=== PATIENT | male | born 1965 | race Caucasian/White ===

== ENCOUNTER 2019-02-28 17:02 | Emergency (ER) | payer BC ==
[~2019-02-28] VITALS: Ht 177.8 cm; Wt 84.1 kg
[2019-02-28] MEDS ORDERED: LORazepam 2 MG TABLET PO ONE (20:00)
[2019-02-28] MEDS ORDERED: HALOPERIDOL 5 MG TABLET PO ONE (20:00)
[2019-02-28 20:22] LABS: BASOPHILS % (AUTO) 1.5 % (0.0-2.0); EOSINOPHILS % (AUTO) 5.4 % (1.0-6.0); HEMATOCRIT 49.8 % (41-53); HEMOGLOBIN 16.7 g/dL (13.5-17.5); LYMPHOCYTES # (AUTO) 4.3 K/uL (1.0-4.8); LYMPHOCYTES % (AUTO) 36.5 % (22.0-44.0); MEAN CORPUSCULAR HEMOGLOBIN 31.1 pg (26.0-34.0); MEAN CORPUSCULAR HGB CONC 33.5 G/dL (31.0-37.0); MEAN CORPUSCULAR VOLUME 93 fL (80-100); MONOCYTES # (AUTO) 1.3 K/uL (0.1-1.0); MONOCYTES % (AUTO) 10.7 % (2.0-9.0); NEUTROPHILS # (AUTO) 5.5 K/uL (1.8-7.7); NEUTROPHILS % (AUTO) 45.9 % (40.0-70.0); PLATELET COUNT (AUTO) 316 K/uL (150-450); RED BLOOD CELL COUNT(AUTO) 5.37 MIL/uL (4.50-5.90); RED CELL DISTRIBUTION WIDTH 13.3 % (11.5-14.5)
[2019-02-28 21:03] LABS: ANION GAP 14 mmol/L (8-16); CALCIUM, TOTAL 9.9 mg/dL (8.8-10.5); CARBON DIOXIDE 23 mmol/L (22-29); CHLORIDE 102 mmol/L (98-107); CREATININE 1.16 mg/dL (0.60-1.30); GLOMERULAR FILTR. RATE CALC > 60 mL/min (>60); GLUCOSE,RANDOM 128 mg/dL (70-110); POTASSIUM 3.5 mmol/L (3.5-5.1); SODIUM SERUM 139 mmol/L (136-145); UREA NITROGEN, BLOOD 14 mg/dL (7-18)
[2019-02-28 21:10] LABS: ALANINE AMINOTRANSFERASE 86 U/L (12-78); ALBUMIN 4.5 g/dL (3.4-5.0); ALKALINE PHOSPHATASE 74 U/L (46-116); ASPARTATE AMINOTRANSFERASE 34 U/L (15-37); BILIRUBIN,TOTAL 0.6 mg/dL (0.1-1.0); TOTAL PROTEIN, SERUM 8.2 g/dL (6.4-8.2)
[2019-02-28 21:31] LABS: AMPHET/METH SCREEN,URINE NEGATIVE (NEGATIVE); BARBITURATE SCREEN, URINE NEGATIVE (NEGATIVE); BENZODIAZEPINES SCREEN,URINE NEGATIVE (NEGATIVE); CANNABINOID SCREEN,URINE POSITIVE (NEGATIVE); COCAINE SCREEN,URINE NEGATIVE (NEGATIVE); METHADONE SCREEN, URINE NEGATIVE (NEGATIVE); OPIATE SCREEN,URINE NEGATIVE (NEGATIVE)
[2019-02-28 21:32] LABS: PHENCYCLIDINE SCREEN,URINE NEGATIVE (NEGATIVE)
[2019-02-28 21:50] VITALS: BP 131/84
== END 2019-02-28 21:55 | disposition home or self-care (01) ==
LOC: EMS 17:02
DX: F31.9 Bipolar disorder, unspecified (principal)
CPT/HCPCS: 36415; 80053; 80307; 85025; 99284; G0480

== ENCOUNTER 2020-12-07 10:41 | Inpatient (IN) | payer BC, MEDICAID ==
[~2020-12-07] VITALS: Ht 177.8 cm; Wt 91.7 kg
[2020-12-07 11:25] LABS: BASOPHILS % (AUTO) 0.6 % (0.0-2.0); HEMATOCRIT 46.7 % (41-53); HEMOGLOBIN 15.7 g/dL (13.5-17.5); LYMPHOCYTES # (AUTO) 1.8 K/uL (1.0-4.8); LYMPHOCYTES % (AUTO) 15.3 % (22.0-44.0); MEAN CORPUSCULAR HEMOGLOBIN 30.8 pg (26.0-34.0); MEAN CORPUSCULAR HGB CONC 33.7 G/dL (31.0-37.0); MEAN CORPUSCULAR VOLUME 92 fL (80-100); MONOCYTES # (AUTO) 1.3 K/uL (0.1-1.0); MONOCYTES % (AUTO) 11.6 % (2.0-9.0); NEUTROPHILS # (AUTO) 8.2 K/uL (1.8-7.7); NEUTROPHILS % (AUTO) 70.5 % (40.0-70.0); PLATELET COUNT (AUTO) 236 K/uL (150-450); RED BLOOD CELL COUNT(AUTO) 5.11 MIL/uL (4.50-5.90); RED CELL DISTRIBUTION WIDTH 13.2 % (11.5-14.5)
[2020-12-07 11:49] LABS: ANION GAP 9 mmol/L (8-16); CALCIUM, TOTAL 9.9 mg/dL (8.8-10.5); CARBON DIOXIDE 29 mmol/L (22-29); CHLORIDE 104 mmol/L (98-107); CREATININE 1.01 mg/dL (0.60-1.30); GLOMERULAR FILTR. RATE CALC > 60 mL/min (>60); GLUCOSE,RANDOM 103 mg/dL (70-110); POTASSIUM 3.9 mmol/L (3.5-5.1); SODIUM SERUM 142 mmol/L (136-145); UREA NITROGEN, BLOOD 20 mg/dL (7-18)
[2020-12-07 11:54] LABS: ALANINE AMINOTRANSFERASE 53 U/L (12-78); ALBUMIN 4.2 g/dL (3.4-5.0); ALKALINE PHOSPHATASE 82 U/L (46-116); ASPARTATE AMINOTRANSFERASE 45 U/L (15-37); TOTAL PROTEIN, SERUM 8.2 g/dL (6.4-8.2)
[2020-12-07] MEDS ORDERED: HALOPERIDOL LACTATE 5 MG/ML VIAL IM ONE (12:00)
[2020-12-07] MEDS ORDERED: LORazepam 2 MG/ML VIAL IM ONE (12:00)
[2020-12-07] MEDS ORDERED: DiphenhydrAMINE HCL 50 MG/ML VIAL IM ONE (12:00)
[2020-12-07 13:10] LABS: AMPHET/METH SCREEN,URINE POSITIVE (NEGATIVE); BARBITURATE SCREEN, URINE NEGATIVE (NEGATIVE); BENZODIAZEPINES SCREEN,URINE NEGATIVE (NEGATIVE); CANNABINOID SCREEN,URINE POSITIVE (NEGATIVE); COCAINE SCREEN,URINE NEGATIVE (NEGATIVE); METHADONE SCREEN, URINE NEGATIVE (NEGATIVE); OPIATE SCREEN,URINE NEGATIVE (NEGATIVE)
[2020-12-07 13:11] LABS: PHENCYCLIDINE SCREEN,URINE NEGATIVE (NEGATIVE)
[2020-12-07] MEDS ORDERED: HALOPERIDOL 5 MG TABLET PO PRN (13:30)
[2020-12-07] MEDS ORDERED: ZOLPIDEM TARTRATE 10 MG TABLET PO PRN (13:30)
[2020-12-07 15:03] LABS: COVID AG,FIA SOURCE NASOPHARYNGEAL
[2020-12-07 19:33] VITALS: BP 106/60
[2020-12-08 06:31] VITALS: BP 119/68
[2020-12-08] MEDS ORDERED: IBUPROFEN 400 MG TABLET PO PRN (07:30)
[2020-12-08] MEDS ORDERED: GuaiFENesin/D-METHORPHAN [SUGAR-FREE] 200-20MG/10 ML SYRUP UDCUP PO PRN (07:30)
[2020-12-08] MEDS ORDERED: ACETAMINOPHEN 325 MG TABLET PO PRN (07:30)
[2020-12-08] MEDS ORDERED: ONDANSETRON HCL 4 MG TABLET PO PRN (07:30)
[2020-12-08] MEDS ORDERED: DOCUSATE SODIUM 100 MG CAPSULE PO PRN (07:30)
[2020-12-08] MEDS ORDERED: MAG HYDROX/AL HYDROX/SIMETH ES 30 ML SUSPENSION UDCUP PO PRN (07:30)
[2020-12-08] MEDS ORDERED: NICOTINE 14 MG/24 HOUR PATCH TD PRN (07:30)
[2020-12-08] MEDS ORDERED: LOPERAMIDE HCL 2 MG CAPSULE PO PRN (07:30)
[2020-12-08] MEDS ORDERED: CloNIDine HCL 0.1 MG TABLET PO PRN (07:30)
[2020-12-08] MEDS ORDERED: PETROLATUM,WHITE 28 GM JELLY TP PRN (07:30)
[2020-12-08] MEDS ORDERED: MAGNESIUM HYDROXIDE SUSPENSION 30 ML UDCUP PO PRN (07:30)
[2020-12-08] MEDS ORDERED: ALBUTEROL SULFATE HFA 90 MCG/PUFF 8 GM INHALER IH PRN (07:30)
[2020-12-08 08:02] LABS: CHOL/HDL RATIO 4.4 (4.2-7.3)
[2020-12-08 08:35] VITALS: BP 122/7
[2020-12-08] MEDS: LORazepam 2 MG TABLET PO PRN (09:31)
[2020-12-08] MEDS: ARIPiprazole 10 MG TABLET PO SCH (09:31)
[2020-12-08 16:38] VITALS: BP 132/71
[2020-12-09 08:44] VITALS: BP 133/58
[2020-12-09] MEDS: LORazepam 2 MG TABLET PO PRN (09:05)
[2020-12-09] MEDS: ARIPiprazole 10 MG TABLET PO SCH (09:05)
[2020-12-09 16:13] VITALS: BP 141/87
[2020-12-10 05:13] VITALS: BP 138/81
[2020-12-10 08:36] VITALS: BP 153/93
[2020-12-10] MEDS: ARIPiprazole 10 MG TABLET PO SCH (09:04)
[2020-12-10] MEDS ORDERED: ARIP10TA8 PO (10:31)
== END 2020-12-10 13:45 | disposition home or self-care (01) | DRG 750 ==
LOC: EMS 10:41 → B3A 17:18
DX: F25.0 Schizoaffective disorder, bipolar type (principal); D72.829 Elevated white blood cell count, unspecified; E78.5 Hyperlipidemia, unspecified; F31.9 Bipolar disorder, unspecified; E80.6 Other disorders of bilirubin metabolism; F15.10 Other stimulant abuse, uncomplicated; F12.10 Cannabis abuse, uncomplicated; B19.20 Unspecified viral hepatitis C without hepatic coma; Z20.822 Contact with and (suspected) exposure to COVID-19
CPT/HCPCS: 87426; 99291; G0480; J1200; J1630; J2060

== ENCOUNTER 2021-02-16 19:34 | Emergency (ER) | payer MEDICAID ==
[~2021-02-16] VITALS: Ht 170.2 cm; Wt 90.9 kg
[~2021-02-16 19:34] MED LIST: ARIP10TA8 PO
[2021-02-16] MEDS ORDERED: SODIUM CHLORIDE 0.9% 1,000 ML IV ONE (20:00)
[2021-02-16 20:47] LABS: COVID AG,FIA SOURCE NASOPHARYNGEAL
[2021-02-16 20:50] LABS: BASOPHILS % (AUTO) 0.6 % (0.0-2.0); EOSINOPHILS % (AUTO) 1.6 % (1.0-6.0); HEMATOCRIT 47.3 % (41-53); HEMOGLOBIN 15.9 g/dL (13.5-17.5); LYMPHOCYTES # (AUTO) 1.7 K/uL (1.0-4.8); LYMPHOCYTES % (AUTO) 12.2 % (22.0-44.0); MEAN CORPUSCULAR HEMOGLOBIN 31.4 pg (26.0-34.0); MEAN CORPUSCULAR HGB CONC 33.7 G/dL (31.0-37.0); MEAN CORPUSCULAR VOLUME 93 fL (80-100); MONOCYTES # (AUTO) 1.2 K/uL (0.1-1.0); MONOCYTES % (AUTO) 8.1 % (2.0-9.0); NEUTROPHILS % (AUTO) 77.5 % (40.0-70.0); PLATELET COUNT (AUTO) 261 K/uL (150-450); RED BLOOD CELL COUNT(AUTO) 5.08 MIL/uL (4.50-5.90); RED CELL DISTRIBUTION WIDTH 13.8 % (11.5-14.5)
[2021-02-16 21:02] LABS: POTASSIUM 3.1 mmol/L (3.5-5.1)
[2021-02-16 21:06] LABS: SALICYLATE 1.8 mg/dL (2.8-20.0)
[2021-02-16 21:17] LABS: ALANINE AMINOTRANSFERASE 46 U/L (12-78); ALKALINE PHOSPHATASE 79 U/L (46-116); ASPARTATE AMINOTRANSFERASE 35 U/L (15-37); BILIRUBIN,TOTAL 0.9 mg/dL (0.1-1.0); CALCIUM, TOTAL 9.4 mg/dL (8.8-10.5); CARBON DIOXIDE 23 mmol/L (22-29); CREATINE KINASE, TOTAL ONLY 435 U/L (39-308); CREATININE 1.34 mg/dL (0.60-1.30); GLOMERULAR FILTR. RATE CALC 56 mL/min (>60); GLUCOSE,RANDOM 84 mg/dL (70-110); TOTAL PROTEIN, SERUM 7.8 g/dL (6.4-8.2); UREA NITROGEN, BLOOD 14 mg/dL (7-18)
[2021-02-16 21:18] LABS: ANION GAP 16 mmol/L (8-16); CHLORIDE 103 mmol/L (98-107); SODIUM SERUM 142 mmol/L (136-145)
[2021-02-16 21:19] LABS: ACETAMINOPHEN < 2 mcg/mL (10-30)
[2021-02-16] MEDS: POTASSIUM CHL 10 MEQ/WATER 50 ML IV SCH ×2 (22:09→23:36)
[2021-02-17 02:30] VITALS: BP 125/70
== END 2021-02-17 02:40 | disposition home or self-care (01) ==
LOC: EMS 19:36
DX: F15.10 Other stimulant abuse, uncomplicated (principal); F12.10 Cannabis abuse, uncomplicated; Z20.822 Contact with and (suspected) exposure to COVID-19
CPT/HCPCS: 36415; 71045; 80053; 82550; 83880; 84484; 85025; 87426; 93005; 96361; 96365; 96366; 99285; G0480; J3480; J7030; G0481